=== PATIENT | female | born 1945 | race Caucasian/White ===

== ENCOUNTER 2022-04-06 10:05 | Emergency (ER) | payer MEDICARE, OTHER ==
[2022-04-06 13:03] VITALS: BP 147/83; PULSE 70
== END 2022-04-06 11:10 | disposition home or self-care (01) ==
LOC: VM.ED 10:05
DX: K59.00 Constipation, unspecified (principal); I10 Essential (primary) hypertension; Z88.8 Allergy status to other drugs, medicaments and biological substances; Z91.048 Other nonmedicinal substance allergy status; Z79.899 Other long term (current) drug therapy; Z79.82 Long term (current) use of aspirin; Z79.01 Long term (current) use of anticoagulants
CPT/HCPCS: 99283

== ENCOUNTER → 2024-11-12 | Day surgery (SDC) | payer MEDICARE, OTHER ==
[~2024-11-12] MED LIST: Lactated Ringers 1,000 ML IV SCH; Propofol 200 MG/20 ML SDV ONE; fentaNYL 100 MCG/2 ML SDV ONE
[2024-11-12 11:51] VITALS: BP 108/58; PULSE 60
== END | disposition home or self-care (01) ==
LOC: VM.SDS 08:36
PROVIDERS: ATTEND Student in an Organized Health Care Education/Training Program
DX: Z12.11 Encounter for screening for malignant neoplasm of colon (principal); D12.2 Benign neoplasm of ascending colon; K51.40 Inflammatory polyps of colon without complications; I48.91 Unspecified atrial fibrillation; I11.0 Hypertensive heart disease with heart failure; I50.32 Chronic diastolic (congestive) heart failure; D50.9 Iron deficiency anemia, unspecified; E66.01 Morbid (severe) obesity due to excess calories; Z86.16 Personal history of COVID-19; Z79.01 Long term (current) use of anticoagulants; Z68.31 Body mass index [BMI] 31.0-31.9, adult; Z79.899 Other long term (current) drug therapy
CPT/HCPCS: 00811; 88305; 99100; J2704; J3010